=== PATIENT | female | born 1990 | race Caucasian/White ===

== ENCOUNTER → 2021-11-22 12:02 | Outpatient (RCR) | payer OTHER, SELFPAY ==
--- NOTE | 2020-04-29 16:45 | MHC.PT.EP ---
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 Pt is deemed an appropriate candidate to receive skilled PT services to address her physical impairments in order to improve her functional ability. Frequency and Duration: The patient will be seen 2x/wk x 5 wks Short Term Goals: In 1 week: initiate HEP with evidence of compliance. In 3 weeks: improve B hip and MMT to > 4+/5. Half-Way Goals: In 5 weeks: I with HEP. In 5 weeks: improve lumbar extensor strength to > good; initial fair. In 5 weeks: Pt will report no pain with standing > 1 hour. Treatment Plan: Modalities to reduce pain, spasms and effusion. Manual therapy to restore motion and function. Therapeutic exercise to improve strength and flexibility. Neuromuscular re-education for posture and balance. Therapeutic activities to return to functional activities of daily living. Please sign and return to therapist. Thank you for your referral.
--- NOTE | 2020-06-30 13:38 | MHC.PT.DC ---
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 Pt is deemed an appropriate candidate to receive skilled PT services to address her physical impairments in order to improve her functional ability. Date of Surgery: Date of Evaluation: 04/29/20 Date of Discharge: Treatments to Date: 7 Cancellations to Date: 0 No Shows to Date: 0 Discharge Status: Achieved Goals Improved Function Independent with HEP Discharge Summary: Ap has been a motivated and active participant in her therapy. She has met all of her therapeutic goals, is I with her home program, and reports she has been pain free of her back for > 3 weeks. Pt is in agreement with DC at this time. Electronically signed by: Osmin Castelan PT. Please sign and return to therapist. Thank you for your referral.
== END | disposition home or self-care (01) ==
LOC: HO.PTCHIC 04-29 14:48
PROVIDERS: Visit Provider Anesthesiology
DX: M79.18 Myalgia, other site (principal)
CPT/HCPCS: 97110; 97161; 97530